=== PATIENT | male | born 1990 | race Two or more races ===

== ENCOUNTER 2018-02-03 15:09 | Emergency (ER) | payer OTHER ==
[2018-02-03 15:16] VITALS: BP 123/77; PULSE 104; RESP 20; TEMP 98.3; O2SAT 98
--- NOTE | 2018-02-03 15:21 | ED PDOC ---
HPI: General Adult Time Seen by Provider: 02/03/18 15:15 Chief Complaint (Nursing): Abnormal Skin Integrity Past Medical History Vital Signs: Last Vital Signs Temp 98.3 F 02/03/18 15:12 Pulse 104 H 02/03/18 15:12 Resp 20 02/03/18 15:12 BP 123/77 02/03/18 15:12 Pulse Ox 98 02/03/18 22:35 - Family History Family History: States: No Known Family Hx - Allergies Allergies/Adverse Reactions: Allergies Allergy/AdvReac Type Severity Reaction Status Date / Time No Known Allergies Allergy Verified 02/03/18 15:12 - ECG O2 Sat by Pulse Oximetry: 98 Disposition - Patient ED Disposition Is Patient to be Admitted: No - Disposition Additional Instructions: Go to your vessel slag worker to remove warts. Print Language: LITHUANIAN
--- NOTE | 2018-02-03 16:42 | ED PDOC ---
HPI: Skin/Bite Injury Time Seen by Provider: 02/03/18 15:15 Chief Complaint (Nursing): Abnormal Skin Integrity Chief Complaint (Provider): warts on right-middle finger History Per: Patient History/Exam Limitations: no limitations Onset/Duration Of Symptoms: Other (one year) Current Symptoms Are (Timing): Still Present Location Of Injury: Right: Hand (right-middle finger ) Additional Complaint(s): 27 year old male presents to the ED complaining of warts on his right-middle finger onset August of last year that has not healed. Patient was prescribed a tropical cream by his signal processing engineer but states it has not worked. Also stated he has had one treatment of freezing the warts by signal processing engineer. Denies fever or pain. PMD: [place] Past Medical History Reviewed: Historical Data, Nursing Documentation, Vital Signs Vital Signs: Last Vital Signs Temp 98.3 F 02/03/18 15:12 Pulse 104 H 02/03/18 15:12 Resp 20 02/03/18 15:12 BP 123/77 02/03/18 15:12 Pulse Ox 98 02/03/18 16:49 - Medical History PMH: No Chronic Diseases - Surgical History Surgical History: No Surg Hx - Family History Family History: States: No Known Family Hx - Allergies Allergies/Adverse Reactions: Allergies Allergy/AdvReac Type Severity Reaction Status Date / Time No Known Allergies Allergy Verified 02/03/18 15:12 Review of Systems ROS Statement: Except As Marked, All Systems Reviewed And Found Negative Constitutional: Negative for: Fever Musculoskeletal: Negative for: Hand Pain Skin: Positive for: Other (warts on his right-middle finger ) Physical Exam - Reviewed Nursing Documentation Reviewed: Yes Vital Signs Reviewed: Yes - Physical Exam Appears: Positive for: Non-toxic, No Acute Distress Head Exam: Positive for: ATRAUMATIC, NORMAL INSPECTION, NORMOCEPHALIC Skin: Positive for: Normal Color, Warm, Dry Pulses-Radial (R): 2+ Extremity: Positive for: Normal ROM, Capillary Refill (Capillary refills less than 3 seconds ), Other (Multiple cauliflower-like lesion on right 3rd digit on the proximal nail margin; 3 on middle phalanx). Negative for: Tenderness ( surrounding erythema, pustules and vesicles) Neurologic/Psych: Positive for: Alert, Oriented (x2). Negative for: Motor/ Sensory Deficits - ECG O2 Sat by Pulse Oximetry: 98 (RA) Pulse Ox Interpretation: Normal Medical Decision Making Medical Decision Making: Time: 151 Initial Plan: --Reevaluation Clinical Impression: warts Upon provider evaluation patient is medically stable, and requires no further treatment in the ED at this time. Patient will be discharged. Counseling was provided and all questions were answered regarding diagnosis and need for follow up with signal processing engineer. There is agreement to discharge plan. Return if symptoms persist or worsen. Scribe Attestation: Documented by Olive Meyer, acting as a scribe for Luke Romero PA-C Provider Scribe Attestation: All medical record entries made by the Scribe were at my direction and personally dictated by me. I have reviewed the chart and agree that the record accurately reflects my personal performance of the history, physical exam, medical decision making, and the department course for this patient. I have also personally directed, reviewed, and agree with the discharge instructions and disposition. Disposition - Clinical Impression Clinical Impression: Warts - Patient ED Disposition Is Patient to be Admitted: No - Disposition Referrals: [facility] [place] [Outside] [facility] [Outside] Disposition: Routine/Home Disposition Time: 15:21 Condition: STABLE Additional Instructions: Go to your signal processing engineer to remove warts. Instructions: Skin Warts Forms: [employer] (Albanian) Print Language: LATVIAN
== END 2018-02-03 15:56 | disposition home or self-care (01) ==
LOC: H.ER 15:09
DX: B07.9 Viral wart, unspecified (principal)

== ENCOUNTER 2018-07-15 21:37 | Emergency (ER) | payer SELFPAY ==
[2018-07-15 21:41] VITALS: BP 119/75; PULSE 84; RESP 18; TEMP 98.8; O2SAT 100
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
== END 2018-07-15 23:25 | disposition home or self-care (01) ==
LOC: H.ER 21:37
DX: S01.81XA Laceration without foreign body of other part of head, initial encounter (principal); S09.90XA Unspecified injury of head, initial encounter